=== PATIENT | female | born 1945 | race Caucasian/White ===

== ENCOUNTER 2017-12-01 10:11 | Outpatient (CLI) | payer MEDICARE, BC ==
[~2017-12-01] VITALS: Ht 165.1 cm; Wt 95.0 kg
--- NOTE | ~2017-12-01 | HEMODYNAMI ---
PATIENT:FABY HINTON MEDICAL RECORD: [id number] : 49 LOCATION:[facility] ADMISSION DATE: 12/01/17 Generatedon:12/01/201715:08 Patient name: FABY HINTON Patient #: [id number] SSN: : Date of study: 12/01/2017 Page: Of Hemodynamic Procedure Report Patient Data Patient Demographics Procedure consent was obtained First Name: FABY Gender: Female Last Name: JAMAAL : 1945 [facility] Initial: CLIFFORD Age: 72 year(s) Patient #: [id number] Race: Unknown Additional ID: [id number] Contact details Address: [address] [place] [address] State: [place] City: [place] Zip code: [address] Admission Admission Data Admission Date: 12/01/2017 Admission Time: 10:11 Procedure Procedure Types Cath Procedure Diagnostic Procedure LHC LHC w/Coronaries Sedation Charges Moderate Sedation up to 30 minutes PCI Procedure Coronary Stent Coronary Stent Initial Procedure Description Procedure Date Procedure Date: 12/01/2017 Procedure Start Time: 14:30 Procedure End Time: 15:08 Procedure Staff Name Function Jossue Malone MD Performing Physician Joel Jamison RT Monitor Kyra Mello RT Scrub Tushar Rocha RN Nurse Procedure Data Cath Procedure Fluoroscopy Diagnostic fluoroscopy Total fluoroscopy Time: time: 15.5 min 15.5 min Diagnostic fluoroscopy Total fluoroscopy dose: dose: 2227 mGy 2227 mGy Contrast Material Contrast Material Type Amount (ml) Isovue 300 170 Entry Location Entry Primary Successful Side Size Upsize Upsize Entry Closure [place] ccessful Closure Location (Fr) 1 (Fr) 2 (Fr) Remarks Device Remarks Radial Right 6 Fr Mechanical artery Short Compression Estimated blood loss: 10 ml Diagnostic catheters Device Type Used For End Catheter Placement DIAGNOSTIC Joes 110cm Procedure 5Fr catheter ([id number]) DIAGNOSTIC JL 3.5 5Fr Procedure catheter ([id number]) DIAGNOSTIC [place] 110cm 5 Procedure Fr catheter (875341) Procedure Medications Medication Administration Route Dosage Oxygen etCO2 Nasal cannula 2 l/min Heparin Flush Bag added to field 2 bags (1000units/500ml NS) 0.9% NaCl I.V. 100 ml/hr Radial Cocktail added to field 1 syringe (Verapomil 2mg/Nitro 400mcg/Heparin 1500units) Radial Cocktail I.A. 1 syringe (Verapomil 2mg/Nitro 400mcg/Heparin 1500units) Fentanyl I.V. 50 mcg Versed I.V. 1 mg Fentanyl I.V. 50 mcg Versed I.V. 1 mg Heparin Bolus I.V. 4000 units Integrilin (Bolus I.V. 8.5 ml 2mg/ml) Integrilin (Bolus wasted 1.5 ml 2mg/ml) Plavix P.O. 600 mg Hemodynamics Rest Heart Rate: 60 (bpm) Pressure Samples Time Site Value (mmHg) Purpose Heart Use Rate(bpm) 14:41 LV 103/2,10 Snapshot 78 Gradients Valve Time Site Site Mean SEP/DFP Peak To Heart Use 1 2 (mmHg) (sec/min) Peak Rate (mmHg) (bpm) Aortic 14:42 LV AO 75 Snapshots Pre Cath Intra NCS Post Cath Vital Signs Time Heart Resp SPO2 etCO2 NIBP Rhythm Pain Sedation Rate (ipm) (%) (mmHg) (mmHg) Status Level (bpm) 14:21:51 60 17 100 36.8 130/69(95) NSR 0 (11) 10(A) , No pain 14:26:46 61 18 100 38.3 115/59(94) NSR 0 (11) 10(A) , No pain 14:30:57 60 16 98 42.1 110/59(74) NSR 0 (11) 9(A) , No pain 14:35:03 63 17 95 13.5 95/51(69) NSR 0 (11) 9(A) , No pain 14:39:07 65 17 98 39.1 112/63(99) NSR 0 (11) 9(A) , No pain 14:43:19 65 18 98 33 101/58(81) NSR 0 (11) 9(A) , No pain 14:47:27 69 15 98 39.8 113/59(78) NSR 0 (11) 9(A) , No pain 14:51:39 62 16 100 41.3 105/58(84) NSR 0 (11) 9(A) , No pain 14:55:46 66 17 99 39.8 123/64(95) NSR 0 (11) 9(A) , No pain 15:00:00 69 17 99 39 118/65(92) NSR 0 (11) 9(A) , No pain 15:04:12 66 17 100 38.3 121/65(95) NSR 0 (11) 10(A) , No pain 15:08:24 89 12 98 39 120/68(99) NSR 0 (11) 10(A) , No pain Medications Time Medication Route Dose Verified Delivered Reason Not es Effectiveness by by 14:23:09 Oxygen etCO2 2 l/min Jossue Finley Per physician Nasal [facility] Rocha RN cannula 14:23:18 Heparin Flush added 2 bags Jossue Finley used for Bag to [facility] Rocha RN procedure (1000units/500ml field MARK NS) 14:23:31 0.9% NaCl I.V. 100 Jossue Finley Per physician ml/hr [facility] RN, MD 14:23:40 Radial Cocktail added 1 Jossue Finley used for (Verapomil to syringe [facility] Rocha RN procedure 2mg/Nitro field MARK 400mcg/Heparin 1500units) 14:26:31 Fentanyl I.V. 50 mcg Jossue Finley for sedation [facility] RN, MD 14:26:37 Versed I.V. 1 mg Jossue Finley for sedation [facility] RN, MD 14:31:22 Radial Cocktail I.A. 1 Jossue Marcum for (Verapomil syringe [place] [facility] vasodilation 2mg/Eveline MARK MD 400mcg/Heparin 1500units) 14:35:42 Fentanyl I.V. 50 mcg Jossue Finley for sedation [facility] RN, MD 14:35:46 Versed I.V. 1 mg Jossue Finley for sedation [facility] RN, MD 14:57:49 Heparin Bolus I.V. 4000 Jossue Finley for units [facility] RN anticoagulation 14:58:00 Integrilin I.V. 8.5 ml Jossue Finley for (Bolus 2mg/ml) [facility] RN antiplatelet MD therapy 14:58:06 Integrilin wasted 1.5 ml Jossue Finley for (Bolus 2mg/ml) [facility] RN antiplatelet MD therapy 15:05:38 Plavix P.O. 600 mg Jossue Finley for [facility] RN antiplatelet MD therapy Procedure Log Time Note 14:00:17 Tushar Rocha RN sent for patient. Start room use. 14:10:18 Time tracking: Regular hours (M-F 7:00 - 5:00) 14:10:23 Plan of Care:Hemodynamics will remain stable., Cardiac rhythm will remain stable., Comfort level will be maintained., Respiratory function will remain adequate., Patient/ family verbilizes understanding of procedure., Procedure tolerated without complication., Recovers from procedure without complications.. 14:13:32 Patient received from Pre/Post Procedure Room to CCL 2 Alert and oriented. Tansferred to table in Supine position. 14:13:33 Warm blankets applied, and christen hugger turned on for patient comfort. 14:13:34 Correct patient and procedure confirmed by team. 14:13:35 Signed procedure consent form obtained from patient. 14:13:36 ECG and BP/O2 sat monitors applied to patient. 14:17:00 Vital chart was started 14:17:01 Baseline sample Acquired. 14:17:13 Full Disclosure recording started 14:17:18 H&P Date Dictated: 12/01/2017 H&P Addendum completed by physician on day of procedure. (MUST COMPLETE FOR ALL OUTPATIENTS), New H&P dictated by physician.. 14:17:20 Pre-procedure instructions explained to patient. 14:17:20 Pre-op teaching completed and patient verbalized understanding. 14:17:21 Family in waiting room. 14:17:23 Patient NPO since Midnight. 14:17:25 Is the patient allergic to Iodine/contrast media? No. 14:17:26 Was the patient premedicated? No 14:17:27 Is patient on blood thinner?No 14:17:28 Patient diabetic? No. 14:17:30 Previous problem with sedation/anesthesia? No ? 14:17:32 Snore? Yes 14:17:33 Sleep apnea? No 14:17:34 Deviated septum? No 14:17:34 Opens mouth fully? Yes 14:17:37 Sticks out tongue? Yes 14:17:38 Airway obstruction? No ? 14:17:41 Dentures? No ? 14:17:44 Pre procedure: right dorsailis pedis pulse 2+ Normal; easily identifiable; not easily obliterated 14:17:47 Pre procedure: left dorsailis pedis pulse 2+ Normal; easily identifiable; not easily obliterated 14:17:50 Patient pain scale 0/10 ?. 14:17:55 IV patent on arrival in left forearm with 0.9% NaCl at O. 14:18:13 Lab results completed and on chart. 14:18:18 Right Radial & Right Groin area was prepped with chlora-prep and draped in sterile fashion 14:18:19 Alarms reviewed by R. N. 14:18:19 Sharps counted by scrub and verified by R.N. 14:20:39 Vital chart was stopped 14:20:41 Vital chart was started 14:23:09 Oxygen 2 l/min etCO2 Nasal cannula was administered by Tushar Rocha RN; Per physician; 14:23:18 Heparin Flush Bag (1000units/500ml NS) 2 bags added to field was administered by Tushar Rocha RN; used for procedure; 14:23:31 0.9% NaCl 100 ml/hr I.V. was administered by Tushar Rocha RN; Per physician; 14:23:40 Radial Cocktail (Verapomil 2mg/Nitro 400mcg/Heparin 1500units) 1 syringe added to field was administered by Tushar Rocha RN; used for procedure; 14:25:19 Physician arrived 14:25:20 --------ALL STOP TIME OUT------ 14:25:20 Final Timeout: patient, procedure, and site verified with staff and physician. All members of the team are in agreement. 14:25:22 Use device set Radial Dx or PCI 14:25:23 ACIST Syringe (87950) opened to sterile field. 14:25:23 Right Radial & Right Groin site verified by team. 14:25:24 Bag Decanter (2002) opened to sterile field. 14:25:24 Medline Cath Pack ([id number]) opened to sterile field. 14:25:25 DIAGNOSTIC WIRE .035 260cm J wire (178939) opened to sterile field. 14:25:25 Physical assessment completed. ASA score P 2 - A patient with mild systemic disease as per Jossue Malone MD. 14:25: ACIST Manifold (59107) opened to sterile field. 14:: ACIST Hand Control (73321) opened to sterile field. 14:: MBrace Wrist Support ([id number]) opened to sterile field. 14:: Tegaderm 4 x 4 (1626W) opened to sterile field. 14::28 Sedation plan: IV Moderate Sedation Medication:Versed, Fentanyl 14:: SHEATH 6Fr Prelude Radial ([id number]) opened to sterile field. 14:: Baseline sample Acquired. 14::48 Rhythm: sinus rhythm 14:: Fentanyl 50 mcg I.V. was administered by Tushar Rocha RN; for sedation; 14::37 Versed 1 mg I.V. was administered by Tushar Rocha RN; for sedation; 14:30:30 Zero performed for pressure channel P1 14:30:36 Procedure started. 14:30:40 Local anesthetic to right radial artery with Lidocaine 2% by Jossue Malone MD.INITIAL ACCESS ONLY 14:30:42 A DIAGNOSTIC [place] 110cm 5 Fr catheter (376991) was advanced over the wire and used for Procedure. 14:30:47 A 6 Fr Short sheath was inserted into the Right Radial artery 14:31:22 Radial Cocktail (Verapomil 2mg/Nitro 400mcg/Heparin 1500units) 1 syringe I.A. was administered by Jossue Malone MD; for vasodilation; 14:32:37 GLIDE WIRE ANGLE 260cm (VT5660) opened to sterile field. 14:32:44 glide wire wire advanced. 14:34:47 Wire removed. 14:35:42 Fentanyl 50 mcg I.V. was administered by Tushar Rocha RN; for sedation; 14:35:46 Versed 1 mg I.V. was administered by Tushar Rocha RN; for sedation; 14:36:59 LCA angiography performed. 14:38:41 RCA angiography performed. 14:41:31 LV hemodynamics recorded. 14:41:33 LV gram done using TOLBERT 14:41:36 Injector settings: Ml/sec: 5, Volume: 15, 14:41:56 EF : 55 % 14:42:05 Catheter removed. 14:42:15 GUIDE 6FR EBU 3.5 catheter ([id number]) opened to sterile field. 14:42:21 6 Fr ebu 3.5 guide catheter was inserted over the wire 14:44:59 Guide Catheter removed. unable to cannulate vessel. 14:45:17 A DIAGNOSTIC Jose 110cm 5Fr catheter (124486) was advanced over the wire and used for Procedure. 14:48:49 Catheter removed. unable to cannulate vessel. 14:49:01 A DIAGNOSTIC JL 3.5 5Fr catheter (229075K) was advanced over the wire and used for Procedure. 14:51:32 Catheter removed. unable to cannulate vessel. 14:52:08 GUIDE 5FR EBU 3.5 catheter ([id number]) opened to sterile field. 14:52:18 5 Fr ebu 3.5 guide catheter was inserted over the wire 14:53:01 LCA angiography performed. 14:54:41 INFLATOR Merit BasixCompak (HU8114) opened to sterile field. 14:54:45 WHISPER 300cm guide wire ([id number]) opened to sterile field. 14:57:46 whisper wire advanced. 14:57:49 Heparin Bolus 4000 units I.V. was administered by Tushar Rocha RN; for anticoagulation; 14:58:00 Integrilin (Bolus 2mg/ml) 8.5 ml I.V. was administered by Tushar Rocha RN; for antiplatelet therapy; 14:58:06 Integrilin (Bolus 2mg/ml) 1.5 ml wasted was administered by Tushar Rocha RN; for antiplatelet therapy; 14:59:03 Wire advanced across lesion. 15:00:42 Place stent Inflation Number: 1 A INTEGRITY OTW 3.5 X 12 stent ([id number]) was prepped and advanced across the Prox LAD. The stent was deployed at 14 DEO for 0:45 (min:sec). 15:00:55 Stent catheter was removed intact over wire. 15:01:01 Wire removed. 15:01:02 Guide catheter removed. 15:01:09 TR BAND Standard ([id number]) opened to sterile field. 15:01:22 Sheath removed intact; hemostasis achieved with Mechanical Compression to the Right Radial artery. 15:01:24 Procedure ended.(Physican Out) 15::22 Fluoroscopy time 15.50 minutes. 15:02:27 Flurop Dose total: 2227 15:02:27 Fluoroscopy dose: 2227 mGy 15:02:31 Contrast amount:Isovue 300 170ml. 15:02:32 Sharps counted by scrub and verified by R.N. 15:02:35 TR band inflated with 12cc of air. 15:02:36 Insertion/operative site no bleeding no hematoma. 15:02:44 Post Procedure Pulses reassessed and unchanged 15:02:46 Post-procedure physical assessment completed. ASA score P 2 - A patient with mild systemic disease as per Jossue Malone MD. 15:02:51 Post procedure rhythm: unchanged. 15:02:54 Estimated blood loss: 10 ml 15:02:55 Post procedure instruction explained to patient.Patient verbalizes understanding. 15:02:56 Patient needs reinforcement of post procedure teaching. 15:04:50 Procedure type changed to Cath procedure, Diagnostic procedure, LHC, LHC w/Coronaries, Sedation Charges, Moderate Sedation up to 30 minutes, PCI procedure, Coronary Stent, Coronary Stent Initial 15:05:38 Plavix 600 mg P.O. was administered by Tushar Rocha RN; for antiplatelet therapy; 15:07:56 See physician's report for complete and final results. 15:07:57 Report given to Pre/Post Procedure Room. 15:07:58 Patient transfered to Pre/Post Procedure Room with Stretcher. 15:07:59 Procedure ended. 15:07:59 Full Disclosure recording stopped 15:08:04 End room use (Document Last) 15:08:58 Vital chart was stopped Intervention Summary Intervention Notes Time ActionType Lesion and Equipment Action# Pressure Duration Attributes Used 15:00:42 Place stent Prox LAD INTEGRITY 1 14 00:45 OTW 3.5 X 12 stent ([id number]) Device Usage Item Name Manufacture Quantity Catalog Number Hospital Part Current M inimal Lot# / Charge Number Stock Stock Serial# Code GLIDE WIRE Terumo 1 [id number] 254312 240662 [id number] 5 ANGLE 260cm (DX9284) GUIDE 6FR EBU Medtronic 1 [id number] 977059 52594 000119 3 3.5 catheter ([id number]) DIAGNOSTIC Terumo 1 40-8022 417030 268568 004474 5 Jose 110cm 5Fr catheter (231265) DIAGNOSTIC JL Cardinal 1 [id number] 204399 134258 487471 5 3.5 5Fr Health catheter (301853D) GUIDE 5FR EBU Medtronic 1 [id number] 910514 091250 691996 1 3.5 catheter ([id number]) INFLATOR Merit Merit 1 ST4160 017876 441345 271922 1 5 A[employer]uto Medical (VL0211) WHISPER 300cm Pugh 1 [id number] 875224 207750 923896 5 guide wire Vascular ([id number]) INTEGRITY OTW Medtronic 1 [id number] 518085 218079 1 [id number] 3.5 X 12 stent ([id number]) TR BAND Terumo 1 [id number] 612633 713158 522135 4 0 Standard ([id number]) ACIST Syringe Acist 1 88526 962848 073090 594541 2 0 (05772) Medical Systems Inc Medline Cath Cardinal 1 [id number] 380194 38917 559908 5 Pack Health ([id number]) Bag Decanter Microtek 1 2001S 100871 88872 056921 5 (2001S) Medical Inc. DIAGNOSTIC WIRE St Meng 1 316854 767640 009494 972210 3 0 .035 260cm J wire (064412) ACIST Hand Acist 1 59259 305286 835925 762699 5 Control (45644) Medical Systems Inc ACIST Manifold Acist 1 83415 599287 316054 205292 5 (49481) Medical Systems Inc Tegaderm 4 x 4 3M 1 1626W 347807 435616 579108 5 (1626W) MBrace Wrist Advanced 1 140-0250-00 786181 65280 561991 5 Support Vascular ([id number]) Dynamics SHEATH 6Fr Merit 1 [id number] 331999 162490 837275 5 Prelude Radial Medical ([id number]) DIAGNOSTIC Terumo 1 22-2331 339944 263932 984522 5 [place] 110cm 5 Fr catheter (025132) Signature Audit [place] Stage Time Signature Unsigned Intra-Procedure 12/01/2017 Joel Jamison 3:08:55 PM RT(R) Signatures Monitor : Joel Jamison RT Signature : Date : Time : [address] [place] [address]
--- NOTE | ~2017-12-01 | HP ---
PATIENT: FABY HINTON MEDICAL RECORD: [id number] ACCOUNT: [id number] LOCATION:[facility] : 49 ADMISSION DATE: 12/01/17 PCP: NICOLE JOHANSEN HISTORY AND PHYSICAL EXAMINATION HISTORY OF PRESENT ILLNESS: A 72-year-old female with no known history of coronary artery disease referred by Nicole Johansen for chest pain, abnormal ECG, and hypertension. Underwent Cardiolite stress testing that showed reversible defect along the anterior wall dyskinesis, being evaluated for rotator cuff surgery. PAST MEDICAL HISTORY: Includes: 1. History of hypertension. 2. Hyperlipidemia. PHYSICAL EXAMINATION: GENERAL: Pleasant female, in no acute distress, appears stated age. HEENT: Normocephalic, atraumatic. NECK: No bruits noted. HEART: Regular. LUNGS: Watts clear. ABDOMEN: Soft, nontender. EXTREMITIES: Pulse 2+. No edema. DIAGNOSTIC DATA: ECG shows nonspecific ST-T changes. Nuclear stress testing is abnormal described above. PLAN: For diagnostic angiography, intervention based on above. TRANSINT:[id number] Voice Confirmation ID: [id number] DOCUMENT ID: [id number] AHMET FRANKS MD at 0843 CC: [id number] DICTATION DATE: 12/01/17 1413 MONITOR CAR OPERATOR: 12/01/17 1420 DEP CLI 12/01/17 [address] [address] [id number] [place] [address]
--- NOTE | ~2017-12-01 | OP ---
PATIENT NAME: FABY HINTON MEDICAL RECORD: [id number] :49 LOCATION:D.[facility] ADMISSION DATE: SURGEON: AHMET FRANKS MD DATE OF OPERATION: 12/01/2017 PROCEDURE: Left heart catheterization, selective coronary angiography, right radial approach. CATHETERS: A 5-[place]izen [place] sheath, 5/4 left and right Linda, 5/4 pig. The procedure was well tolerated. We proceeded immediately to stenting of the LAD. FINDINGS: Left ventriculography in the 30-degree TOLBERT view. Normal wall motion and normal systolic function. CORONARY ANATOMY: LEFT MAIN: Left main is free of disease. LAD: Has a mid-portion stenosis of about 80% correlating nicely with nuclear study. CIRCUMFLEX: Free of disease. RIGHT CORONARY ARTERY: Luminal irregularities, but otherwise free of disease. PLAN: Intervention LAD momentarily. DESCRIPTION OF PROCEDURE: Using indwelling radial sheath, an EBU 3.5 guiding catheter provided good guide catheter support followed by 300 centimeter Whisper wire, which was placed across the occluded LAD distal portion of vessel. Stent deployed was a 3.5 x 12 mm Integrity nondrug eluting stent at 14 atmospheres. Final angiography revealed excellent resolution of 80% stenosis, no significant residual. INDY flow was 3 throughout the procedure. Integrilin was used during the case. Sheath was closed with TR band. Plavix was loaded in the lab. TRANSINT:[id number] Voice Confirmation ID: [id number] DOCUMENT ID: [id number] AHMET FRANKS MD at 0843 CC: [id number] DICTATION DATE: 12/01/17 1506 ELECTRIC METER TESTER HELPER: 12/01/17 1537 DEP CLI 12/01/17 [place] [id number] [place] [address]
[2017-12-01] MEDS ORDERED: TENORMIN25 MG PO (10:57)
[2017-12-01] MEDS ORDERED: CETIRIZINE HCL5 MG PO (10:57)
[2017-12-01] MEDS ORDERED: MERIBIN5 MG PO (10:58)
[2017-12-01] MEDS ORDERED: CITRACAL + D E1 EACH PO (10:58)
[2017-12-01] MEDS ORDERED: CENTRUM SILVER1 EAC3 PO (10:58)
[2017-12-01] MEDS ORDERED: VITAMIN D31000 UNIT PO (10:58)
[2017-12-01] MEDS ORDERED: BAYER CHEWABLE81 MG PO (10:59)
[2017-12-01 11:11] VITALS: BP 129/67; Ht 165.1 cm; Wt 95.0 kg
[2017-12-01 11:23] LABS: BASOPHILS 0.6 % (0-2); EOSINOPHILS 6.4 % (0-7); HEMATOCRIT 38.9 % (36.0-48.0); HEMOGLOBIN 13.7 g/dL (12-16); IMMATURE GRANULOCYTES 0.1 % (0-5); LYMPHOCYTES 33.3 % (15-50); MCH 32.5 pg (26.0-34.0); MCHC 35.2 g/dL (31.0-37.0); MCV 92.2 fL (80.0-100.0); MEAN PLATELET VOLUME 9.5 fL (7.4-10.4); MONOCYTES 6.8 % (2-11); NEUTROPHILS 52.8 % (40-80); PLATELET COUNT 223 10x3/uL (130-400); RBC 4.22 10x6/uL (4.00-5.40); RDW 12.5 % (11.5-14.5); WBC 7.8 10x3/uL (4.8-10.8)
[2017-12-01 11:34] LABS: CALC OSMOLALITY 274 mosm/kg (275-300); CARBON DIOXIDE 28.5 mmol/L (21.0-32.0); CHLORIDE - SERUM 101 mmol/L (98-107); CREATININE - SERUM 0.8 mg/dL (0.6-1.3); GLUCOSE 89 mg/dL (74-106); SODIUM 137 mmol/L (136-145); UREA NITROGEN 19 mg/dL (7-18); eGFR NON AFRICAN AMERICAN 75 mL/min (90-120)
== END 2017-12-01 17:45 | disposition home or self-care (01) ==
LOC: D.CATH 10:11
PROVIDERS: Internal Medicine Interventional Cardiology
DX: I20.9 Angina pectoris, unspecified (principal); R94.30 Abnormal result of cardiovascular function study, unspecified; I10 Essential (primary) hypertension; E78.5 Hyperlipidemia, unspecified; R94.31 Abnormal electrocardiogram [ECG] [EKG]; Z01.812 Encounter for preprocedural laboratory examination